=== PATIENT | male | born 1935 | race Caucasian/White ===

== ENCOUNTER 2018-07-16 14:16 | Observation (INO) | payer MEDICARE ==
[~2018-07-16] VITALS: Ht 167.6 cm; Wt 85.5 kg
[2018-07-16 15:04] LABS: BASOPHILS ABSOLUTE AUTO 0.03 K/mm3 (0.00-0.23); BASOPHILS PERCENT AUTO 0 % (0-2); EOSINOPHILS ABSOLUTE AUTO 0.08 K/mm3 (0.00-0.68); EOSINOPHILS PERCENT AUTO 1 % (0-6); Hematocrit 43.7 % (37.0-53.0); Hemoglobin 14.9 g/dL (13.5-17.5); IMMATURE GRAN ABSOLUTE AUTO 0.02 K/mm3 (0.00-0.10); IMMATURE GRAN PERCENT AUTO 0 % (0-1); LYMPHOCYTES ABSOLUTE AUTO 1.44 K/mm3 (0.84-5.20); LYMPHOCYTES PERCENT AUTO 14 % (21-46); MONOCYTES ABSOLUTE AUTO 0.94 K/mm3 (0.16-1.47); MONOCYTES PERCENT AUTO 9 % (4-13); Mean Corpuscular HGB 34.1 pg (26.0-34.0); Mean Corpuscular HGB Conc 34.1 g/dL (31.5-36.5); Mean Corpuscular Volume 100 fL (80-100); Mean Platelet Volume 10.8 fL (9.1-12.4); NEUTROPHILS ABSOLUTE AUTO 7.55 K/mm3 (1.96-9.15); NEUTROPHILS PERCENT AUTO 75 % (41-73); Platelet Count 193 K/mm3 (150-400); RDW Coefficient Variation 12.5 % (11.7-14.2); RDW Standard Deviation 46.9 fL (35.1-46.3); Red Blood Cell Count 4.37 M/mm3 (4.30-5.90); White Blood Cell Count 10.06 K/mm3 (4.00-11.30)
[2018-07-16 15:19] LABS: Alanine Aminotransfer (ALT/SGP 62 U/L (12-78); Albumin, Blood 4.5 g/dL (3.4-5.0); Albumin/Globulin Ratio 1.3 (0.8-1.8); Alk Phos 41 U/L (50-136); Anion Gap 9 mmol/L (6-16); Aspartate Aminotrans (AST/SGOT 53 U/L (12-37); Bilirubin, Total 0.7 mg/dL (0.1-1.0); Blood Urea Nitrogen 25 mg/dL (8-24); Bun/Creatinine Ratio 31.9 (12.0-20.0); CO2, Blood 29 mmol/L (21-32); Calcium, Blood 9.4 mg/dL (8.5-10.1); Chloride, Blood 100 mmol/L (98-108); Creatinine, Blood 0.78 mg/dL (0.60-1.20); Globulin, Blood 3.5 g/dL (2.2-4.0); Glomerular Filtration Rate >60 (60-); Glucose, Blood 122 mg/dL (70-99); Potassium, Blood 3.9 mmol/L (3.5-5.5); Sodium, Blood 138 mmol/L (136-145)
[2018-07-16] MEDS ORDERED: Hydrocodone-Ap1 EA23 PO (15:53)
[2018-07-16] MEDS ORDERED: Azopt10 ML (15:53)
[2018-07-16] MEDS ORDERED: TIMOLOL MALEATE 0.5% (15:54)
[2018-07-16] MEDS ORDERED: Prinivil10 MG PO (15:54)
[2018-07-16] MEDS ORDERED: ATOR20 PO (15:54)
[2018-07-16] MEDS ORDERED: LUMIGAN2.5 ML BOTHEYES (15:54)
[2018-07-16] MEDS ORDERED: TAMS.4ER PO (15:54)
[2018-07-16] MEDS ORDERED: CALCIUM 600 +1 EAC8 PO (16:00)
[2018-07-16] MEDS ORDERED: Glucosamine &1 EACH PO (16:01)
[2018-07-16] MEDS ORDERED: VIT1CAPS12 PO (16:01)
[2018-07-16] MEDS ORDERED: FISH OIL/OMEGA 3 (16:02)
[2018-07-16] MEDS ORDERED: ASPI81CH PO (16:03)
[2018-07-16] MEDS ORDERED: METAMUCIL0.4 GM PO (16:03)
[2018-07-17 05:11] LABS: BASOPHILS ABSOLUTE AUTO 0.04 K/mm3 (0.00-0.23); BASOPHILS PERCENT AUTO 1 % (0-2); EOSINOPHILS ABSOLUTE AUTO 0.09 K/mm3 (0.00-0.68); EOSINOPHILS PERCENT AUTO 1 % (0-6); Hematocrit 40.7 % (37.0-53.0); Hemoglobin 13.6 g/dL (13.5-17.5); IMMATURE GRAN ABSOLUTE AUTO 0.02 K/mm3 (0.00-0.10); IMMATURE GRAN PERCENT AUTO 0 % (0-1); LYMPHOCYTES ABSOLUTE AUTO 1.35 K/mm3 (0.84-5.20); LYMPHOCYTES PERCENT AUTO 17 % (21-46); MONOCYTES PERCENT AUTO 13 % (4-13); Mean Corpuscular HGB Conc 33.4 g/dL (31.5-36.5); Mean Corpuscular Volume 102 fL (80-100); Mean Platelet Volume 10.5 fL (9.1-12.4); NEUTROPHILS PERCENT AUTO 68 % (41-73); Platelet Count 170 K/mm3 (150-400); RDW Coefficient Variation 12.8 % (11.7-14.2)
[2018-07-17 05:23] LABS: Adenovirus F 40/41 Not Detected (NOT DETECT); Astrovirus Not Detected (NOT DETECT); Campylobacter Sp Not Detected (NOT DETECT); Cryptosporidium Not Detected (NOT DETECT); Cyclospora Cayetanensis Not Detected (NOT DETECT); E. Coli O157 Not Detected (NOT DETECT); Entamoeba Histolytica Not Detected (NOT DETECT); Enteroaggregative E. coli-EAEC Not Detected (NOT DETECT); Enteropathogenic E. coli-EPEC Not Detected (NOT DETECT); Enterotoxigenic E. coli-ETEC Not Detected (NOT DETECT); Giardia Lamblia Not Detected (NOT DETECT); Norovirus GI/GII Not Detected (NOT DETECT); Plesiomonas Shigelloides Not Detected (NOT DETECT); Rotavirus A Not Detected (NOT DETECT); Salmonella Sp Not Detected (NOT DETECT); Sapovirus Not Detected (NOT DETECT); Shiga Toxin-prod E. coli-STEC Not Detected (NOT DETECT); Shigella/Enteroin E. coli-EIEC Not Detected (NOT DETECT); Vibrio Cholerae Not Detected (NOT DETECT); Vibrio Sp Not Detected (NOT DETECT); Yersinia Enterocolitica Not Detected (NOT DETECT)
[2018-07-17 05:48] LABS: Anion Gap 10 mmol/L (6-16); Blood Urea Nitrogen 19 mg/dL (8-24); Bun/Creatinine Ratio 28.7 (12.0-20.0); CO2, Blood 21 mmol/L (21-32); Calcium, Blood 8.4 mg/dL (8.5-10.1); Chloride, Blood 108 mmol/L (98-108); Creatinine, Blood 0.66 mg/dL (0.60-1.20); Glomerular Filtration Rate >60 (60-); Glucose, Blood 128 mg/dL (70-99); Potassium, Blood 4.2 mmol/L (3.5-5.5); Sodium, Blood 139 mmol/L (136-145)
== END 2018-07-17 16:54 | disposition home or self-care (01) ==
LOC: ER 14:16 → MEDS 14:17 → ER 20:33 → MEDS 20:33
PROVIDERS: Nurse Practitioner Acute Care; Physician Assistant
DX: K52.9 Noninfective gastroenteritis and colitis, unspecified (principal); I10 Essential (primary) hypertension; N40.0 Benign prostatic hyperplasia without lower urinary tract symptoms; E78.5 Hyperlipidemia, unspecified; H40.9 Unspecified glaucoma; Z79.899 Other long term (current) drug therapy; Z88.7 Allergy status to serum and vaccine
CPT/HCPCS: 36415; 74177; 74250; 80048; 80053; 83690; 85025; 87507; 93005; 93010; 96374; 99285-25; C9113; G0378; J2405; J7030; Q9967

== ENCOUNTER 2018-08-19 10:42 | Inpatient (IN) | payer MEDICARE ==
[~2018-08-19] VITALS: Ht 170.2 cm; Wt 84.8 kg
[~2018-08-19 10:42] MED LIST: ALBU90OI61 INH; ASPI81CH PO; ATOR20 PO; Azopt10 ML BOTHEYES; CALCIUM 600 +1 EAC8 PO; CALCIUM PYRUVATE PO; CALCIUM WITH V1 EACH PO; FISH OIL/OMEGA 3 PO; Glucosamine &1 EACH PO; Hair, Skin & N1 EACH PO; Hydrocodone-Ap1 EA23 PO; LUMIGAN2.5 ML BOTHEYES; METAMUCIL0.4 GM PO; PROBIOTIC1 EAC3 PO; Prinivil10 MG PO; Refresh Eye Dr1 EACH BOTHEYES; TAMS.4ER PO; TIMOLOL MALEATE 0.5% BOTHEYES; VIT1CAPS12 PO
--- NOTE | 2018-08-20 07:10 | NUR ---
History, Chart, Medications and Allergies reviewed before start of procedure.Patient confirms NPO status and agrees with scheduled surgery. Patient reports completing Chlorhexadine shower X2 prior to admission to hospital.Surgical site prepped with 2% Chlorhexidine cloth wipe.NOSIN NASAL SWBS DONE
--- NOTE | 2018-08-21 04:22 | NUR ---
SHIFT SUMMARY: PT POD #1 L TOTAL HIP. A&O X4. VS WNL. PT GIVEN SCHED TORADOL AND TYLENOL. REPORTS PAIN IS WELL CONTROLLED; RATING PAIN 1/10 ON PAIN SCALE. REFUSES PAIN MEDICATION. OOB TO BATHROOM SEVERAL TIMES. ONE SBA WITH WALKER. DRINKING ADEQUATE PO FLUIDS AND VOIDING. PLAN FOR PATIENT TO WORK WITH PT AND DISCHARGE HOME TODAY.
[2018-08-21 05:46] LABS: BASOPHILS ABSOLUTE AUTO 0.01 K/mm3 (0.00-0.23); BASOPHILS PERCENT AUTO 0 % (0-2); EOSINOPHILS PERCENT AUTO 0 % (0-6); Hematocrit 31.6 % (37.0-53.0); Hemoglobin 10.4 g/dL (13.5-17.5); IMMATURE GRAN ABSOLUTE AUTO 0.03 K/mm3 (0.00-0.10); IMMATURE GRAN PERCENT AUTO 0 % (0-1); LYMPHOCYTES ABSOLUTE AUTO 0.95 K/mm3 (0.84-5.20); LYMPHOCYTES PERCENT AUTO 8 % (21-46); MONOCYTES ABSOLUTE AUTO 1.46 K/mm3 (0.16-1.47); MONOCYTES PERCENT AUTO 12 % (4-13); Mean Corpuscular HGB 33.8 pg (26.0-34.0); Mean Corpuscular HGB Conc 32.9 g/dL (31.5-36.5); Mean Corpuscular Volume 103 fL (80-100); Mean Platelet Volume 11.6 fL (9.1-12.4); NEUTROPHILS PERCENT AUTO 80 % (41-73); Platelet Count 127 K/mm3 (150-400); RDW Coefficient Variation 12.2 % (11.7-14.2); RDW Standard Deviation 45.9 fL (35.1-46.3); Red Blood Cell Count 3.08 M/mm3 (4.30-5.90); White Blood Cell Count 12.45 K/mm3 (4.00-11.30)
[2018-08-21 06:31] LABS: Anion Gap 8 mmol/L (6-16); Blood Urea Nitrogen 32 mg/dL (8-24); Bun/Creatinine Ratio 34.3 (12.0-20.0); CO2, Blood 25 mmol/L (21-32); Calcium, Blood 8.3 mg/dL (8.5-10.1); Chloride, Blood 108 mmol/L (98-108); Creatinine, Blood 0.93 mg/dL (0.60-1.20); Glomerular Filtration Rate >60 (60-); Glucose, Blood 120 mg/dL (70-99); Potassium, Blood 4.2 mmol/L (3.5-5.5); Sodium, Blood 141 mmol/L (136-145)
--- NOTE | 2018-08-21 10:02 | NUR ---
PT AMBULATING IN HALLWAY WITH PHYSICAL THERAPY
[2018-08-21] MEDS ORDERED: ASPI325 PO (12:19)
--- NOTE | 2018-08-21 13:17 | NUR ---
Spiritual care visit conducted. Patient was in the process of checking out of the hospital but welcomed me into the room. Because of the discharge that was underway my visit was brief but productive. Patient was in good spirits and excited to be feeling better and to be going home. Patient and Ijeoma were very positive about life and their future. I reinforced their helpful attitutdes and practices and spoke a blessing over them of health and peace and left the room. Patient and spouse voiced appreciation for the visit as I exited.
--- NOTE | 2018-08-21 13:49 | NUR ---
provided pt with discharge instructions, education, written prescriptions filled by pt's . pt states understanding of instructions. peripheral IV removed wnl. pt escorted to awaiting vehicle via wheelchair, belongings to vehicle on cart
== END 2018-08-21 13:45 | disposition home or self-care (01) | DRG 470 ==
LOC: SURS 08-20 06:03 → PRE IP 08-20 07:30 → SURS 08-20 11:40
PROVIDERS: ADMIT Orthopaedic Surgery
PROC: 0SRB04A Replacement of Left Hip Joint with Ceramic on Polyethylene Synthetic Substitute, Uncemented, Open Approach (ICD-10-PCS; principal; 2018-08-20 07:30)
DX: M16.12 Unilateral primary osteoarthritis, left hip (principal); I10 Essential (primary) hypertension; E78.5 Hyperlipidemia, unspecified; Z87.891 Personal history of nicotine dependence
CPT/HCPCS: 36415; 72170; 80048; 85025; 86850; 86900; 86901; 88300; 97110; 97116; 97162; 97530; C1776; J0171; J0690; J0735; J1100; J1170; J1885; J2250; J2405; J2765; J2795; J3010; J7120

== ENCOUNTER → 2018-12-15 | Outpatient (CLI) | payer MEDICARE ==
[~2018-12-15] MED LIST changes: +ASPI325 PO
[2018-12-15 13:06] LABS: Adenovirus F 40/41 Not Detected (NOT DETECT); Astrovirus Not Detected (NOT DETECT); Campylobacter Sp Not Detected (NOT DETECT); Cryptosporidium Not Detected (NOT DETECT); Cyclospora Cayetanensis Not Detected (NOT DETECT); E. Coli O157 Not Detected (NOT DETECT); Entamoeba Histolytica Not Detected (NOT DETECT); Enteroaggregative E. coli-EAEC Not Detected (NOT DETECT); Enteropathogenic E. coli-EPEC Not Detected (NOT DETECT); Enterotoxigenic E. coli-ETEC Not Detected (NOT DETECT); Giardia Lamblia Not Detected (NOT DETECT); Norovirus GI/GII Not Detected (NOT DETECT); Plesiomonas Shigelloides Not Detected (NOT DETECT); Rotavirus A Not Detected (NOT DETECT); Salmonella Sp Not Detected (NOT DETECT); Sapovirus Not Detected (NOT DETECT); Shiga Toxin-prod E. coli-STEC Not Detected (NOT DETECT); Shigella/Enteroin E. coli-EIEC Not Detected (NOT DETECT); Vibrio Cholerae Not Detected (NOT DETECT); Vibrio Sp Not Detected (NOT DETECT); Yersinia Enterocolitica Not Detected (NOT DETECT)
== END | disposition home or self-care (01) ==
LOC: LAB 11:33 → LAB SHORT 11:33
PROVIDERS: Internal Medicine Gastroenterology
DX: K52.839 Microscopic colitis, unspecified (principal)
CPT/HCPCS: 87507

== ENCOUNTER 2020-05-15 07:03 | Day surgery (SDC) | payer MEDICARE ==
[~2020-05-15] VITALS: Ht 170.2 cm; Wt 77.0 kg
[2020-05-15] MEDS ORDERED: METO25ER PO (07:29)
[2020-05-15] MEDS ORDERED: IBUP200 PO (07:34)
[2020-05-15] MEDS ORDERED: ACET500 PO (07:34)
[2020-05-15] MEDS ORDERED: CLOP75 PO (12:19)
--- NOTE | 2020-05-15 16:32 | NUR ---
UP TO BR WITH ASSIST OF , STEADY GAIT.
--- NOTE | 2020-05-15 17:11 | NUR ---
RIGHT RADIAL SITE SOFT AND NONTENDER . HAND AND FINGERS WARM AND GOOD SENSATION. ARM BOUARD IN PLACE AND SLING PLACED TO RIGHT ARM. DISCHARGE INSTRUCTIONS GIVEN AND QUESTIONS ANSWERED. DR ROMERO IN PRIOR TO DISCHARGE TO SPEAK TO PATIENT AND ABOUT MEDICATIONS AND NEXT PROCEDURE.
== END 2020-05-15 22:39 | disposition home or self-care (01) ==
LOC: MHTC 07:03
PROC: B201YZZ Plain Radiography of Multiple Coronary Arteries using Other Contrast (ICD-10-PCS; principal; 2020-05-15)
PROC: 4A023N7 Measurement of Cardiac Sampling and Pressure, Left Heart, Percutaneous Approach (ICD-10-PCS; principal; 2020-05-15)
DX: I25.118 Atherosclerotic heart disease of native coronary artery with other forms of angina pectoris (principal); E78.00 Pure hypercholesterolemia, unspecified; E78.5 Hyperlipidemia, unspecified; I11.0 Hypertensive heart disease with heart failure; I50.9 Heart failure, unspecified; Z88.7 Allergy status to serum and vaccine; Z87.891 Personal history of nicotine dependence; Z79.82 Long term (current) use of aspirin; Z79.899 Other long term (current) drug therapy; E66.3 Overweight; Z68.27 Body mass index [BMI] 27.0-27.9, adult
CPT/HCPCS: 85347; 92978; 92979; 93458; 93571; 99152; 99153; C1725; C1753; C1769; C1874; C1887; C1894; C9600; J1644; J2250; J3010; J7030; J7050; Q9967

== ENCOUNTER 2020-06-14 07:46 | Day surgery (SDC) | payer MEDICARE ==
[~2020-06-14] VITALS: Ht 170.2 cm; Wt 79.0 kg
[~2020-06-14 07:46] MED LIST changes: +ACET500 PO; +Aspir 8181 MG PO; +CLOP75 PO; +Calcium + Vita1 EACH PO; +E-200200 UNIT PO; +GLUC500 PO; +IBUP200 PO; +METO25ER PO; +MULTIVITAMINS1 EAC3 PO
--- NOTE | 2020-06-14 12:43 | NUR ---
DISCHARGE INSTRUCTIONS GONE OVER WITH AND PT, BOTH VERBALIZE UNDERSTANDING. 6 CC AIR REMOVED FROM TR BAND IN TOTAL AND AREA STARTED TO SEEP. 2 CC AIR REPLACED FOR TOTAL OF 6 CC REMAINING IN TR BAND.
--- NOTE | 2020-06-14 14:31 | NUR ---
PT UP AND DRESSED WITH ASSIST FROM . PT P[LACED IN ARM SLING PRIOR TO DISCHARGE. CLOTH DOT PLACED OVER RIGHT RADIAL SITE AFTER AREA CLEANSED. SALINE LOCK REMOVED WITH CATHETER INTACT. PT TO PRIVATE VEHICLE PER W/C WITH ONE STAFF.
== END 2020-06-14 14:50 | disposition home or self-care (01) ==
LOC: MHTC 07:46
PROC: 02703ZZ Dilation of Coronary Artery, One Artery, Percutaneous Approach (ICD-10-PCS; principal; 2020-06-14)
DX: I11.0 Hypertensive heart disease with heart failure (principal); I50.9 Heart failure, unspecified; I25.10 Atherosclerotic heart disease of native coronary artery without angina pectoris; M19.90 Unspecified osteoarthritis, unspecified site; E78.5 Hyperlipidemia, unspecified; E66.3 Overweight; Z68.27 Body mass index [BMI] 27.0-27.9, adult; Z95.5 Presence of coronary angioplasty implant and graft; Z79.82 Long term (current) use of aspirin; Z79.02 Long term (current) use of antithrombotics/antiplatelets; Z79.899 Other long term (current) drug therapy; Z87.891 Personal history of nicotine dependence; Z88.7 Allergy status to serum and vaccine; Z51.5 Encounter for palliative care
CPT/HCPCS: 85347; 93005; 93010; 93454; 99152; 99153; C1769; C1887; C1894; J1644; J2250; J3010; J7030; J7050; Q9967

== ENCOUNTER 2020-06-26 06:55 | Day surgery (SDC) | payer MEDICARE ==
[~2020-06-26] VITALS: Ht 170.2 cm; Wt 79.6 kg
[~2020-06-26 06:55] MED LIST changes: +CALCIUM 600-VI1 EAC2 PO; -Calcium + Vita1 EACH PO; -Glucosamine &1 EACH PO; +[UNRECOGNIZED DRUG - OTHER] PO
[2020-06-26] MEDS ORDERED: [UNRECOGNIZED DRUG - OTHER] BOTHEYES (07:42)
[2020-06-26] MEDS ORDERED: FISH OIL 1,2001 EAC1 PO (07:43)
--- NOTE | 2020-06-26 11:31 | NUR ---
PT ARRIVED FROM [facility] WITH TR BAND IN PLACE. SITE WITH NO SIGN OF OOZING OR BLEEDING. PT DENIES CP AT THIS TIME. NO FURTHER ISSUE OR CONCERNS.
--- NOTE | 2020-06-26 15:00 | NUR ---
TOTAL OF 4CC REMOVED AT THIS TIME FROM TR BAND. SCANT BLEEDING, NO SWELLING AT THIS TIME.
--- NOTE | 2020-06-26 16:47 | NUR ---
TR BAND OFF. NO BRUISING, BLEEDING OR SWELLING NOTED AT THIS TIME.
--- NOTE | 2020-06-26 18:35 | NUR ---
SHIFT SUMMARY: TR BAND OFF WITH CLEAR DRESSING IN PLACE. DRESSING CLEAN, DRY, NO SIGN OF BLEEDING OR SWELLIING. PT SBA. NO ACUTE NEEDS OR CONCERNS. PLAN FOR DC HOME TOMORROW WITH OUTPT APPOINTMENT FOR CABG.
--- NOTE | 2020-06-27 05:37 | NUR ---
SHIFT SUMMARY PT SLEPT T/O SHIFT. R RADIAL SITE WNL, TEGADERM C/D/I. HR STABLE. BP STABLE. PT REPORTS NO CP OR PRESSURE. OXYGEN SATURATION MAINTAINED ABOVE 92% ON RA. PT INDEPENDENT IN ROOM. ALERT AND ORIENTED X 4. WILL CONTINUE TO MONITOR UNTIL REPORT GIVEN TO RAMAN HEWITT.
--- NOTE | 2020-06-27 10:05 | NUR ---
DISCHARGE NOTE PT WAS PLEASANT DURING MORNING REPORT, PT COOPERATED WITH MORNING ASSESMENT, VS STABLE, RIGHT RADIAL SITE C/D/I, ARM BOARD IN PLACE. PT RECEIVED D/C EDUCATION REGARDING CAD AND RADIAL SITE CARE. PT IS TO FOLLOW UP WITH DR. MCGARRY ON 07/18 TO GET REFERRAL TO CARDIOLOGY AT [facility] IN [place]. IV WAS REMOVED BEFORE DISCHARGE, CATH TIP IN PLACE, PT TOLERATED WELL. PT DC'D AT 1010, LEFT THE FLOOR WITH DISCHARGE VOLUNTEER, CORA PT IN WHEELCHAIR TO MEET AT FRONT ENTRANCE.
== END 2020-06-27 10:15 | disposition home or self-care (01) ==
LOC: MHTC 06:55 → PCU 10:57 → MHTC 06-27 10:15
PROC: 02703ZZ Dilation of Coronary Artery, One Artery, Percutaneous Approach (ICD-10-PCS; principal; 2020-06-26)
PROC: 02C03ZZ Extirpation of Matter from Coronary Artery, One Artery, Percutaneous Approach (ICD-10-PCS; principal; 2020-06-26)
DX: I25.10 Atherosclerotic heart disease of native coronary artery without angina pectoris (principal); I10 Essential (primary) hypertension; E78.5 Hyperlipidemia, unspecified; M19.90 Unspecified osteoarthritis, unspecified site; Z79.82 Long term (current) use of aspirin; Z79.02 Long term (current) use of antithrombotics/antiplatelets; Z79.899 Other long term (current) drug therapy; Z87.891 Personal history of nicotine dependence; Z88.7 Allergy status to serum and vaccine; Z95.5 Presence of coronary angioplasty implant and graft
CPT/HCPCS: 76937; 85347; 92924; 99152; 99153; A9270-GY; C1724; C1725; C1753; C1769; C1887; C1894; J1644; J2250; J3010; J7030; J7050; Q2038; Q9967

== ENCOUNTER → 2022-09-30 | Outpatient (CLI) | payer MEDICARE ==
[~2022-09-30] MED LIST changes: +FISH OIL 1,2001 EAC1 PO; +[UNRECOGNIZED DRUG - OTHER] BOTHEYES
[2022-09-30 12:15] LABS: Adenovirus F 40/41 Not Detected (NOT DETECT); Astrovirus Not Detected (NOT DETECT); Campylobacter Sp Not Detected (NOT DETECT); Cryptosporidium Not Detected (NOT DETECT); Cyclospora Cayetanensis Not Detected (NOT DETECT); E. Coli O157 Not Detected (NOT DETECT); Entamoeba Histolytica Not Detected (NOT DETECT); Enteroaggregative E. coli-EAEC Not Detected (NOT DETECT); Enteropathogenic E. coli-EPEC Not Detected (NOT DETECT); Enterotoxigenic E. coli-ETEC Not Detected (NOT DETECT); Giardia Lamblia Not Detected (NOT DETECT); Norovirus GI/GII Not Detected (NOT DETECT); Plesiomonas Shigelloides Not Detected (NOT DETECT); Rotavirus A Not Detected (NOT DETECT); Salmonella Sp Not Detected (NOT DETECT); Sapovirus Not Detected (NOT DETECT); Shiga Toxin-prod E. coli-STEC Not Detected (NOT DETECT); Shigella/Enteroin E. coli-EIEC Not Detected (NOT DETECT); Vibrio Cholerae Not Detected (NOT DETECT); Vibrio Sp Not Detected (NOT DETECT); Yersinia Enterocolitica Not Detected (NOT DETECT)
== END | disposition home or self-care (01) ==
LOC: LAB 09:37 → LAB SHORT 09:37
PROVIDERS: Student in an Organized Health Care Education/Training Program
DX: K52.839 Microscopic colitis, unspecified (principal)
CPT/HCPCS: 87507